=== PATIENT | female | born 1960 | race Caucasian/White ===

== ENCOUNTER 2016-07-13 22:40 | Emergency (ER) | payer OTHER ==
[2016-07-13 23:17] LABS: Urine Bilirubin Negative (NEGATIVE); Urine Blood Negative /ul (NEGATIVE); Urine Ketone Negative (NEGATIVE); Urine Nitrite Negative (NEGATIVE); Urine Protein Negative (NEGATIVE); Urine Specific Gravity 1.015 SP.GR. (1.005-1.010); Urine Urobilinogen Normal (NORMAL)
[2016-07-13 23:18] LABS: Urine Appearance Slightly Cloudy; Urine Bacteria 2+; Urine Color Yellow; Urine RBC None Seen /hpf (0-5); Urine WBC 0-5 /hpf (0-5)
--- OUTSIDE RECORDS SUMMARY | 2016-07-13 23:43 | XMS REPORT | Continuity of Care Document ---
:1960 Author Organization [facility] ([facility]) Address [address] [place] [address] Phone [phone] Care Team Providers Name Role Phone [phone], Need To Check Primary Care Provider Unavailable Source Comments This disclosure is being made pursuant to the Care Everywhere program, applicable federal and state laws, and may not contain all informaitonavailable regarding this patient.[facility] ([facility]) Active Allergies and Adverse Reactions Not on File Current Medications Not on file Active Problems Not on file Social History Tobacco Use Types Packs/Day Years Used Date Never Assessed Plan of Care Health Maintenance Due Date Last Done Comments HCV Screening 1960 Hepatitis B Vaccine (1 of 3 - Primary Series) 1960 Tdap Vaccine 02/23/1972 Lipid Disorder Screening 1979 MMR Vaccine 1979 Td Vaccine 1979 Cervical Cancer Screening 1991 Mammogram 2001 Colonoscopy 2011 Influenza Vaccine: Seasonal (#1) 12/17/2015 Results from Last 3 Months Not on file
[2016-07-13] MEDS ORDERED: CIPROFLOXACIN HCL 250 MG TABLET PO ONE (23:44)
[2016-07-13] MEDS ORDERED: CIPROFLOXACIN HCL 250 MG TABLET ONE (23:46)
--- NOTE | 2016-07-13 23:50 | ERNOTE ---
ER Female HPI Stated Complaint: KIDNEY PAIN Presenting Symptoms: other Time Seen by Provider: 07/13/16 23:37 Source: patient Exam Limitations: no limitations Immunizations: IMMUNIZATION HX History of Influenza Vaccine Yes Hx Pneumococcal Vaccination No Allergies/Adverse Reactions: Allergies No Known Drug Allergies Allergy (Verified 07/13/16 22:54) Home Medications: HOME MEDICATIONS Ciprofloxacin HCl [Cipro] 500 mg PO BID #20 tab 07/13/16 [Last Taken Unknown] Escitalopram Oxalate [Lexapro] 20 mg PO DAILY 07/13/16 [Last Taken Unknown] Metoprolol Tartrate [Lopressor] 100 mg PO DAILY 07/13/16 [Last Taken Unknown] traZODone HCL [Desyrel] 100 mg PO HS 07/13/16 [Last Taken Unknown] - History of Present Illness Narrative: Yesterday morning patient started to have pelvic pain and right CVA tenderness, symptoms got worse today, denies dysuria or frequency, slight chills and nausea , no vomiting Date (Duration): 07/12/16 Quality: Present: mild, aching Onset Location: Present: suprapubic, right flank Review of Systems - Review of Systems Constitutional: Present: no symptoms reported, chills. Absent: fever ENT: Absent: nose congestion Respiratory: Absent: shortness of breath Cardiology: Absent: chest pain Gastrointestinal/Abdominal: Present: See HPI, nausea. Absent: vomiting, diarrhea Genitourinary: Present: See HPI Musculoskeletal: Present: See HPI Neurological: Absent: headache - Patient's Past Medical History Patient History - Medical: Anxiety Patient History - Cardiac/Respiratory: Hypertension Patient History - Cancer: No Hx of Cancer Patient History - Surgical Procedures: , Hysterectomy Patient History - Other: None - Social History Living Situations: home Psych History: Hx of Anxiety, Current tx/ever been on anti-depressants or anti- anxiety meds Smoking Status: Former smoker Have you smoked in the past 12 months: No Alcohol Use: none Drug Use: none - Immunizations Hx Pneumococcal Vaccination: No History of Influenza Vaccine: Yes Physical Exam - Physical Exam General Appearance: Present: wd/wn, alert, no apparent distress Respiratory: Present: no respiratory distress, normal breath sounds, lungs clear Cardiovascular/Chest: Present: regular rate, rhythm, no murmur Gastrointestinal/Abdominal: Present: normal bowel sounds, nondistended, soft, tenderness - minimal suprapubic Back Exam: Present: normal inspection, no vertebral tenderness, CVA tenderness ( R) - mild Neurological Exam: Present: alert, oriented, normal mood/affect Skin Exam: Present: normal color, warm/dry ED Progress - Results and Orders Patient's Lab Results:: I have reviewed the patient's lab results. - Vital Signs Patient's Vital Signs:: I have reviewed the patient's vital signs. Vital Signs: Vital Signs 07/13/16 22:49 Temperature 37.9 C H Pulse Rate 80 Respiratory 18 Rate Blood Pressure 145/106 O2 Sat by Pulse 97 Oximetry - Progress/Reassessment Chief Complaint: Genitourinary Problem Departure Clinical Impression: Pyelonephritis - Departure Disposition: Home self-care Condition: Good Instructions: Pyelonephritis, Adult, [id number] Referrals: Radha Feliciano ARNP [Primary Care Provider] - Prescriptions: Ciprofloxacin HCl [Cipro] 500 mg PO BID #20 tab
[2016-07-14 00:36] VITALS: BP 140/90
== END 2016-07-13 23:49 | disposition home or self-care (01) ==
LOC: ER 22:40
DX: N10 Acute pyelonephritis (principal); Z87.891 Personal history of nicotine dependence; F41.9 Anxiety disorder, unspecified; I10 Essential (primary) hypertension